=== PATIENT | female | born 1990 | race Caucasian/White ===

== ENCOUNTER 2017-02-13 05:00 | Inpatient (IN) | payer SELFPAY ==
[~2017-02-13] VITALS: Ht 162.6 cm; Wt 83.9 kg
[2017-02-13 06:34] LABS: BASOPHILS 0.2 % (0-2); EOSINOPHILS 2.7 % (0-7); HEMATOCRIT 40.6 % (36.0-48.0); HEMOGLOBIN 13.8 g/dL (12-16); IMMATURE GRANULOCYTES 1.1 % (0-5); LYMPHOCYTES 27.1 % (15-50); MCH 31.4 pg (26.0-34.0); MCV 92.3 fL (80.0-100.0); MEAN PLATELET VOLUME 11.2 fL (7.4-10.4); MONOCYTES 4.2 % (2-11); NEUTROPHILS 64.7 % (40-80); PLATELET COUNT 207 10x3/uL (130-400); RDW 16.2 % (11.5-14.5)
--- NOTE | 2017-02-13 07:20 | NUR ---
ASSUMED CARE OF THIS PATIENT. AWAKE, NEEDING TO VOID. ASSISTED UP TO BATHROOM. VOIDED WITHOUT DIFFICULTY. U/2 FIRM, MIDLINE RUBRA MOD PRIOR TO GETTING UP. INSTRUCTED ON STORMY-CARE WITH BETADINE AND WARM WATER. CLEAN PADS AND UNDERWEAR ON. NOTED SMELL ON PATIENT BREATH SIMILIAR TO ALCOHOL. WILL COMPLETE ADMIT ASSESSMENT AND TRANSFER TO CLEAN ROOM AFTER BREAKFAST. NO REQUESTS AT THIS TIME. SIDE RAILS UP X 2, CALL LIGHT IN REACH.
[2017-02-13 07:38] VITALS: BP 133/74
[2017-02-13 08:25] VITALS: BP 133/74; Ht 162.6 cm; Wt 83.9 kg
[2017-02-13 08:32] LABS: UDS - AMPHET NEGATIVE QUAL (NEGATIVE); UDS - BARB NEGATIVE QUAL (NEGATIVE); UDS - BENZO NEGATIVE QUAL (NEGATIVE); UDS - COCAINE NEGATIVE QUAL (NEGATIVE); UDS - METH NEGATIVE QUAL (NEGATIVE); UDS - OPIATE NEGATIVE QUAL (NEGATIVE); UDS - PCP NEGATIVE QUAL (NEGATIVE); UDS - THC NEGATIVE QUAL (NEGATIVE)
--- NOTE | 2017-02-13 08:52 | NUR ---
ADMISSION H&P COMPLETED. SEE FORMS. ALREADY DELIVERED. LABS PENDING, PLANS CLOSED ADOPTION, OFFERED CASE MANAGEMENT FOR ASSISTANCE BUT DECLINES AT THIS TIME. PLANS TO SEE AND INSTRUCTED TO LET RN KNOW WHEN SHE WOULD LIKE TO DO THAT. DENIES HX OF DRUG USE, DOES SAY SHE DRANK A BEER LAST NIGHT. SMOKER, DECLINED PATCH TODAY. SO REQUESTS AT PRESENT. SIDE RAILS UP X 2, CALL LIGHT IN REACH.
--- NOTE | 2017-02-13 10:03 | NUR ---
NORCO 5 MG GIVEN PO FOR RELIEF OF 6/10 ABDOMINAL CRAMPING. SIDE RAILS UP X 2, CALL LIGHT IN REACH. INSTRUCTED TO CALL IF ANYTHING IS NEEDED OR ASSISTANCE TO BATHROOM IF FEELING LIGHTHEADED. VERBALIZED UNDERSTANDING AND SAID SHE HAS BEEN UP TWICE IN OTHER ROOM WITHOUT PROBLEMS. LIGHTS OFF PER PT REQUEST.
--- NOTE | 2017-02-13 10:49 | NUR ---
AMBULATED TO CAR TO GET CELL PHONE NAVIGATING OFFICER.
--- NOTE | 2017-02-13 11:25 | NUR ---
RETURNED FROM WALKING. SAID HER PAIN IS BETTER 3/10. NO REQUESTS.
--- NOTE | 2017-02-13 11:58 | NUR ---
SITTING UP IN BED. FINISHED LUNCH. DESIRES TO AMBULATE IN HOSPITAL STATES "IT HELPED MY BACK". PLANS TO AMBULATE SOME MORE, INSTRUCTED POLICY NOT TO SMOKE ON HOSPITAL GROUNDS AND INSTRUCTED NOT TO LEAVE TO SMOKE. VERBALIZED UNDERSTANDING.
[2017-02-13 14:01] VITALS: BP 120/76
--- NOTE | 2017-02-13 14:07 | NUR ---
PT CALLED REQUESTED PAIN MEDICATION FOR C/O ABDOMINAL CRAMPING. MOTRIN 600 MG GIVEN FOR 6/10 ABDOMINAL CRAMPING. U/2 FIRM MIDLINE. RUBRA SMALL TO MOD. COLA GIVEN FOR DRINK AND FRESH WATER. REQUESTED TO SEE INFANT. NURSERY NOTIFIED. IF MINIMAL RELIEF FROM CRAMPING WILL GIVE NORCO NEEDED. SIDE RAILS UP X 2, CALL LIGHT IN REACH.
--- NOTE | 2017-02-13 15:23 | NUR ---
RETURNED TO ROOM AFTER AMBULATING. STILL WITH 6/10 CRAMPING. NORCO 5 MG GIVEN PO. VISITORS X 3 AND INFANT IN ROOM. NO ALCOHOL ODORS NOTED. SIDE RAILS UP X2, CALL LIGHT IN REACH.
--- NOTE | 2017-02-13 16:13 | NUR ---
INFANT IN NURSERY. OUT OF ROOM AMBULATING AT THIS TIME.
--- NOTE | 2017-02-13 16:24 | NUR ---
RETURNED FROM WALKING SAYS SHE IS FEELING MUCH BETTER 3/10 CRAMPING NOW. NO REQUESTS.
--- NOTE | 2017-02-13 17:40 | NUR ---
RETURNED TO ROOM AFTER AMBULATING. NO REQUESTS. PER DR PUGA PT CAN ONLY AMBULATE ON UNIT. PT WAS INFORMED OF ABOVE AND VERBALIZED UNDERSTANDING.
--- NOTE | 2017-02-13 17:57 | NUR ---
CM received a telephone call from the nursery regarding an adoption. The nursery staff state the mother contacted the front end software engineer on admission. The adopting parents are on site requesting to see the infant. They have provided adoption paperwork which has been notarized and the preparing front end software engineer's contact information is on the forms but not her signature. The L&D nurses reportedly spoke with the front end software engineer. Adoption policy pulled and reviewed w/ nursery staff. CM request they copy the paperwork and place on infant's chart. Cm also noted copy of ID must be on the chart. DR Mejía is rounding. She advises CM speak with the mother when she is sober. Blood alcohol levels for the mother and infant were taken. CM spoke with Clarissa Crabtree, Quality Management, Risk Management and Case Management Leather Currier. Will speak with the mother to verify signed documents and plan. Will speak with the front end software engineer and adoptive parents. Will have copies of documentation on the chart. The nursery staff have also called their vault manager regarding policy questions.
[2017-02-13 19:22] VITALS: BP 128/74
--- NOTE | 2017-02-13 19:22 | NUR ---
SHIFT ASSESSMENT COMPLETED. PT IN SEMI FOWLERS POSITION, LYING IN BED ON BACK. PAIN 6/10, INTERMITTENT ABD CRAMPING AND "A LITTLE" ACHE. NORCO GIVEN PER ORDER. VSS. FUNDUS FIRM, U2 SMALL AMT RUBRA LOCHIA, NO CLOTS PRESENT. PT REQUESTED MEDICATION FOR ANXIETY, MD NOTIFIED WITH ORDERS REC'D THAT SHE COULD HAVE 5 MG AMBIEN FOR SLEEP, BUT NO ANXIETY MEDICATIONS. DISCUSSED WITH PT, PT AGREEABLE. PT REQUESTED SANDWICH AND CHOCOLATE PUDDING, GIVEN PER REQUEST WITH [employer]. PT STATES THAT SHE IS PASSING FLATUS AND VOIDING WITHOUT DIFFICULTY. DENIES ADDITIONAL NEEDS AT THIS TIME.
--- NOTE | 2017-02-13 19:38 | NUR ---
PT AMBULATES TO NURSES STATION, ASKS RN TO COME TO ROOM. RN TO ROOM. PT QUESTIONS RN ABOUT LENGTH OF STAY. RN EXPLAINED THAT 12-24 HRS IS TYPICAL FOLLOWING NVD. PT REQUESTS TO BE D/C'D HOME THIS EVENING IF MD AGREEABLE. SPOKE WITH DR. PUGA REGARDING POSSIBLE D/C, MD AGREEABLE IF ALL PAPERWORK REGARDING ADOPTION OF IS COMPLETED IT NEEDS TO BE. SPOKE WITH IDALIA BUCHANAN RN REGARDING PAPERWORK. COPIES OF ADOPTION PAPERWORK PRESENT IN N. NO SHAPE HAND SIGNATURE PRESENT ON PAPERWORK AT THIS TIME. PT HAS SHAPE HAND CONTACT INFORMATION SAVED (KELSEY BAILEY, CELL: [phone]). RN ATTEMPTED TO CONTACT REGARDING SIGNATURE ON PAPERWORK, VOICE MESSAGE LEFT ASKING FOR RETURN CALL. PT STATES THAT SHE SIGNED ALL PARENTAL RIGHT OVER TO ADOPTIVE FAMILY 02/01/17 FOR THIS INFANT. HS CONTACTED REGARDING INCOMPLETED ADOPTION PAPERWORK WITH QUESTIONS REGARDING D/C OF PT WITH POSSIBLE PENDING PAPERWORK. HS TO ATTEMPT TO CONTACT JENNIFER PARK REGARDING ISSUE.
--- NOTE | 2017-02-13 20:02 | NUR ---
PAIN REASSESSMENT COMPLETED. PAIN 12/04. DENIES NEED FOR ADDITIONAL INTERVENTION AT THIS TIME.
--- NOTE | 2017-02-13 20:31 | NUR ---
RN TO BEDSIDE, NOTIFIED PT THAT MD AGREED TO D/C HOME THIS EVENING IF SHE STILL WISHED TO GO. EXPLAINED TO PT THAT AT THIS TIME COMPLETION OF ADOPTION PAPER WORK IS PENDING, VERBALIZED UNDERSTANDING, EXPLAINED TO PT THAT STAFF HAD QUESTIONS REGARDING LEGAL CUSTODY OF AT THIS TIME AND POTENTIAL FOR ABANDONMENT CHARGES IF SHE LEFT PRIOR TO COMPLETING PAPERWORK, PT VERBALIZED UNDERSTANDING, STATES THAT SHE STILL WISHES TO BE D/C'D HOME. PT VERBALIZED THAT SHE WANTS TO KEEP BUT KNOWS THAT SHE IS UNABLE TO CARE FOR AND PROVIDE AND THAT FEELS ADOPTION IS THE BEST WAY FOR HER CHILD TO HAVE THE BEST LIFE. PT STATES THAT SHE HAS GIVEN NBN PERMISSION FOR ADOPTIVE PARENTS TO SEE AND CARE FOR INFANT.
[2017-02-13] MEDS ORDERED: HYDROCODON-ACE1 EAC7 PO (20:39)
[2017-02-13] MEDS ORDERED: IBUPROFEN600 MG PO (20:40)
--- NOTE | 2017-02-13 21:06 | NUR ---
DISCHARGE INSTRUCTIONS REVIEWED WITH PT. VERBALIZED UNDERSTANDING. EMPHASIS PLACED ON CONTACTING DR. PUGA'S OFFICE ON 02/15/17 TO SCHEDULE PP F/U APPT, VERBALIZED UNDERSTANDING AND POINTED OUT CONTACT INFO TO RN. PT STATES THAT HER FRIEND IS ON THIER WAY TO HOSPITAL TO GET HER. WRITTEN PRESCRIPTION FOR PAIN MEDICATION GIVEN. REVIEWED LAST MEDICATION DOSE TIME AND WHEN SHE COULD TAKE THEM NEXT WITH PT, VERBALIZED UNDERSTANDING.
--- NOTE | 2017-02-13 21:13 | NUR ---
PT TO NURSES STATION, STATES THAT FRIEND IS HER TO PICK HER UP WAITING IN CAR. W/C OFFERED, PT REFUSES. RN WALKS PT TO AWAITING CARE. PT WITH BELONGINGS WITH HER IN PATIENT BELONGING BAG.
[2017-02-16 03:09] LABS: RAPID PLASMA REAGIN Non Reactive (Non Reactive)
[2017-02-16 04:14] LABS: HEPATITIS C ANTIBODY <0.1 (0.0-0.9)
[2017-02-16 14:26] LABS: HGB SOLUBILITY (SICKLE SCREEN) Negative (Negative)
== END 2017-02-13 21:13 | disposition home or self-care (01) | DRG 775 ==
LOC: D.LD 05:00
PROVIDERS: ADMIT Obstetrics & Gynecology
PROC: 10E0XZZ Delivery of Products of Conception, External Approach (ICD-10-PCS; principal; 2017-02-13)
PROC: 0HQ9XZZ Repair Perineum Skin, External Approach (ICD-10-PCS; 2017-02-13)
DX: O62.3 Precipitate labor (principal); Z3A.39 39 weeks gestation of pregnancy; Z37.0 Single live birth; O70.0 First degree perineal laceration during delivery

== ENCOUNTER 2018-06-23 12:34 | Emergency (ER) | payer MEDICAID ==
[~2018-06-23] VITALS: Ht 162.6 cm; Wt 68.2 kg
[~2018-06-23 12:34] MED LIST: HYDROCODON-ACE1 EAC7 PO; IBUPROFEN600 MG PO
[2018-06-23 12:55] VITALS: Ht 162.6 cm; Wt 68.2 kg
[2018-06-23 14:08] VITALS: BP 122/72
== END 2018-06-23 14:00 | disposition home or self-care (01) ==
LOC: D.ER 12:34
DX: M54.5 Low back pain (principal); Z76.0 Encounter for issue of repeat prescription; Z86.59 Personal history of other mental and behavioral disorders; F17.200 Nicotine dependence, unspecified, uncomplicated